=== PATIENT | male | born 1965 | race Caucasian/White ===

== ENCOUNTER 2021-01-31 20:07 | Inpatient (IN) | payer OTHER, SELFPAY ==
--- NOTE | 2021-01-31 20:41 | RAD REPORT ---
EXAM DESCRIPTION: CT - Ct Stroke Brain Wo Cont - 01/31/2021 8:33 pm CLINICAL HISTORY: Numbness and tingling, headache None. TECHNIQUE: Sequential axial images from the vertex to the skull base without IV contrast. All CT scans are performed using dose optimization technique as appropriate and may include automated exposure control or mA/KV adjustment according to patient size. FINDINGS: No evidence of mass or hemorrhage. No midline shift. No abnormal extra-axial collection. G ray-white differentiation is preserved without CT evidence of ischemia. Ventricles and sulci are norm al in size for patient's age. Basal cisterns patent. Mild chronic small vessel ischemic changes. Visualized portions of the mastoid air cells, paranasal sinuses, and orbits are unremarkable. IMPRESSION: No CT evidence of acute intracranial process. Discussed with Dr. Carlin by Dr. Mandujano at 2027 on 01/31/21.
--- NOTE | 2021-01-31 20:46 | RAD REPORT ---
EXAM DESCRIPTION: RAD - Chest Single View - 01/31/2021 8:41 pm CLINICAL HISTORY: stroke protocol COMPARISON: <Comparisons> FINDINGS: No evidence of edema or pneumonia. The heart size is within normal limits.No acute osseous abnormality. No significant pleural effusions or pneumothorax. IMPRESSION: No acute cardiopulmonary disease.
[2021-01-31 20:47] LABS: Basophils % 0.8 % (0-1.3); Hematocrit 44.4 % (39.6-49.0); MPV 7.4 fL (7.6-11.3); RBC Red Blood Cell Count 5.34 M/uL (4.33-5.43)
[2021-01-31 20:53] LABS: Protime INR 1.03
[2021-01-31] MEDS ORDERED: ASPIRIN 81 MG CHEWABLE TABLET ONE (20:57)
[2021-01-31] MEDS ORDERED: FOLIC ACID 5 MG/ML VIAL ONE (20:57)
[2021-01-31] MEDS ORDERED: NA CHLORIDE 0.9% 1,000 ML ONE (20:57)
--- NOTE | 2021-01-31 21:05 | EDPHYS ---
Physician Documentation [facility] Name: Malvin Saunders Age: 55 yrs Sex: Male : 1965 Arrival Date: 01/31/2021 Time: 20:20 Bed 24 Private MD: ED Physician Walt Carlin HPI: 01/31 20:54 This 55 yrs old Male presents to ER via Ambulatory with complaints of S/S of moni Possible Stroke. 20:54 The patient's problem is reported as a facial droop, on left. Onset: The moni symptoms/episode began/occurred 1 day(s) ago. Duration: The episode is continuous. Context: the episode(s) was witnessed, by family, . The symptoms are alleviated by nothing. The symptoms are aggravated by nothing. Associated signs and symptoms: The patient has no apparent associated signs or symptoms. Severity of symptoms: At their worst the symptoms were mild in the emergency department the symptoms are unchanged. Patient's baseline: Neuro: alert and fully oriented. The patient has not experienced similar symptoms in the past. Historical: - Allergies: 20:41 No Known Allergies; jm8 - PMHx: 20:41 Hypertensive disorder; Hypercholesterolemia; jm8 - PSHx: 20:41 None; jm8 - Immunization history:: Adult Immunizations up to date, Client reports having NOT received the Covid vaccine. - Social history:: Smoking status: Patient denies any tobacco usage or history of. - Family history:: not pertinent. ROS: 20:54 Constitutional: Negative for fever, chills, and weight loss, Eyes: Negative for injury, moni pain, redness, and discharge, ENT: Negative for injury, pain, and discharge, Neck: Negative for injury, pain, and swelling, Respiratory: Negative for shortness of breath, cough, wheezing, and pleuritic chest pain, Abdomen/GI: Negative for abdominal pain, nausea, vomiting, diarrhea, and constipation, Back: Negative for injury and pain, : Negative for injury, bleeding, discharge, and swelling, MS/Extremity: Negative for injury and deformity, Skin: Negative for injury, rash, and discoloration, Psych: Negative for depression, anxiety, suicide ideation, homicidal ideation, and hallucinations, Allergy/Immunology: Negative for hives, rash, and allergies. 20:54 Cardiovascular: Positive for chest pain, of the chest and left arm. 20:54 Neuro: Positive for left upper and lower facial droop. Exam: 20:54 Radiologist reports: neg moni 20:54 Constitutional: This is a well developed, well nourished patient who is awake, alert, and in no acute distress. Eyes: Pupils equal round and reactive to light, extra-ocular motions intact. Lids and lashes normal. Conjunctiva and sclera are non-icteric and not injected. Cornea within normal limits. Periorbital areas with no swelling, redness, or edema. ENT: Nares patent. No nasal discharge, no septal abnormalities noted. Tympanic membranes are normal and external auditory canals are clear. Oropharynx with no redness, swelling, or masses, exudates, or evidence of obstruction, uvula midline. Mucous membranes moist. Neck: Trachea midline, no thyromegaly or masses palpated, and no cervical lymphadenopathy. Supple, full range of motion without nuchal rigidity, or vertebral point tenderness. No Meningismus. Chest/axilla: Normal chest wall appearance and motion. Nontender with no deformity. No lesions are appreciated. Cardiovascular: Regular rate and rhythm with a normal S1 and S2. No gallops, murmurs, or rubs. Normal PMI, no JVD. No pulse deficits. Respiratory: Lungs have equal breath sounds bilaterally, clear to auscultation and percussion. No rales, rhonchi or wheezes noted. No increased work of breathing, no retractions or nasal flaring. Abdomen/GI: Soft, non-tender, with normal bowel sounds. No distension or tympany. No guarding or rebound. No evidence of tenderness throughout. Back: No spinal tenderness. No costovertebral tenderness. Full range of motion. Male : Normal genitalia with no discharge or lesions. Skin: Warm, dry with normal turgor. Normal color with no rashes, no lesions, and no evidence of cellulitis. MS/ Extremity: Pulses equal, no cyanosis. Neurovascular intact. Full, normal range of motion. Neuro: Awake and alert, GCS 15, oriented to person, place, time, and situation. Cranial nerves II-XII grossly intact. Motor strength 5/5 in all extremities. Sensory grossly intact. Cerebellar exam normal. Normal gait. Psych: Awake, alert, with orientation to person, place and time. Behavior, mood, and affect are within normal limits. 20:54 Head/face: Noted is left upper and lower facial droop. 21:05 ECG was reviewed by the Attending Physician. [facility] Vital Signs: 20:31 BP 172 / 104; Pulse 72; Resp 16; Temp 98.2; Pulse Ox 97% on R/A; Weight 113.4 kg; 8 Height 5 ft. 7 in. (170.18 cm); 21:33 BP 168 / 91; Pulse 64; Resp 16; Pulse Ox 97% on R/A; 8 22:09 BP 151 / 88; Pulse 67; Resp 16; Pulse Ox 97% on R/A; 8 20:31 Body Mass Index 39.16 (113.40 kg, 170.18 cm) 8 NIH Stroke Scale Scores: 20:38 NIHSS Score: 4 8 MDM: 20:[address] [facility] 20:57 Differential diagnosis: CVA, TIA. Data reviewed: vital signs, nurses notes, lab test [facility] result(s), EKG, radiologic studies, CT scan, plain films. Data interpreted: groundwater monitoring technician: rate is 72 beats/min, rhythm is regular, Pulse oximetry: on room air is 97 %. Test interpretation: by ED physician or midlevel provider: ECG, plain radiologic studies. Counseling: I had a detailed discussion with the patient and/or guardian regarding: the historical points, exam findings, and any diagnostic results supporting the discharge/admit diagnosis, lab results, radiology results, the need for further work-up and treatment in the hospital. 01/31 20:27 Order name: Basic Metabolic Panel; Complete Time: 23:45 mw2 01/31 20:27 Order name: CBC with Diff; Complete Time: 23:45 mw2 01/31 20:27 Order name: Protime (+inr); Complete Time: 23:45 mw2 01/31 20:27 Order name: Ptt, Activated; Complete Time: 23:45 mw2 01/31 20:32 Order name: COVID-19 : Document "Date of Symptom Onset" if Symptomatic. ph 01/31 20:49 Order name: Glucose, Ancillary Testing; Complete Time: 23:45 EDMS 01/31 22:05 Order name: SARS-COV-2 RT PCR; Complete Time: 23:45 EDMS 01/31 23:46 Order name: LFT's [facility] 01/31 23:46 Order name: Magnesium [facility] 01/31 23:46 Order name: NT PRO-BNP [facility] 01/31 23:46 Order name: Troponin (emerg Dept Use Only) [facility] 02/01 01:08 Order name: Liver (Hepatic) Function; Complete Time: 01:40 EDMS 02/01 01:08 Order name: Troponin (Emerg Dept Use Only); Complete Time: 01:40 EDMS 01/31 20:27 Order name: CT Stroke Brain w/o Contrast; Complete Time: 23:45 mw2 01/31 20:27 Order name: Stroke CXR 1 View; Complete Time: 23:45 mw2 02/01 01:08 Order name: NT PRO-BNP; Complete Time: 01:40 EDMS 02/01 01:08 Order name: Magnesium; Complete Time: 01:40 EDMS 02/01 06:49 Order name: CBC with Automated Diff EDGA 02/01 06:50 Order name: Comprehensive Metabolic Panel EDGA 02/01 06:50 Order name: Phosphorus EDMS 02/01 06:50 Order name: Lipid Profile EDMS 02/01 06:50 Order name: T4 Free EDMS 02/01 06:50 Order name: Magnesium EDMS 02/01 06:50 Order name: Thyroid Stimulating Hormone EDMS 02/01 08:43 Order name: MRI EDGA 02/01 08:45 Order name: MRI EDMS 02/01 08:48 Order name: MRI EDMS 02/01 08:54 Order name: Manual Differential EDGA 02/01 09:55 Order name: Troponin I EDGA 01/31 20:27 Order name: EKG; Complete Time: 20:27 [facility] 01/31 20:27 Order name: Accucheck; Complete Time: 20:47 2 01/31 20:27 Order name: Cardiac monitoring; Complete Time: 20:47 2 01/31 20:27 Order name: EKG - Nurse/Tech; Complete Time: 20:47 01/31 20:27 Order name: IV Saline Lock; Complete Time: 20:47 01/31 20:27 Order name: Labs collected and sent; Complete Time: 20:47 2 01/31 20:27 Order name: NPO; Complete Time: 20:47 2 01/31 20:27 Order name: O2 Per Protocol; Complete Time: 20:47 mw2 01/31 20:27 Order name: O2 Sat Monitoring; Complete Time: 20:47 mw2 01/31 20:27 Order name: Stroke Swallow Screen; Complete Time: :47 mw01/31 21:55 Order name: CONS Physician Consult EDMS EC:05 Rate is 73 beats/min. Rhythm is regular. QRS [place] is Normal. VT interval is normal. QRS moni interval is normal. QT interval is normal. No Q waves. T waves are Normal. No ST changes noted. Clinical impression: NSR w/ Non-specific ST/T Changes and No evidence of ischemia. Interpreted by me. Reviewed by me. Administered Medications: 20:39 Drug: NS 0.9% 1000 ml Route: IV; Rate: 1 bolus; Site: left antecubital; ph 20:39 Drug: foLIC Acid 1 mg Route: IVPB; Site: left antecubital; ph 21:07 Drug: Aspirin Chewable Tablet 324 mg Route: PO; ak2 21:16 Follow up: Response: No adverse reaction jm8 21:16 Drug: predniSONE 60 mg Route: PO; jm8 21:16 Drug: Valtrex (valACYclovir) 1000 mg Route: PO; jm8 21:16 Drug: Lovenox (enoxaparin) 1 mg/kg Route: Sub-Q; Site: abdomen; jm8 21:43 Not Given (Hemodynamic Parameters): Lopressor (metoprolol TARTRATE) 50 mg PO once jm8 Point of Care Testing: Blood Glucose: 20:42 Blood Glucose: 108 mg/dL; jm8 Ranges: Critical Glucose Levels:Adult <50 mg/dl or >400 mg/dl <40 mg/dl or >180 mg/dl Disposition Summary: 01/31/21 21:04 Hospitalization Ordered Hospitalization Status: Observation moni Provider: Yelitza Diaz moni Condition: Stable moni Problem: new moni Symptoms: have improved moni Bed/Room Type: Standard moni Location: [facility] ER HOLD(01/31/21 22:07) cg Room Assignment: ERHOLD-(01/31/21 22:07) cg Diagnosis - Ibarra's palsy moni - Essential (primary) hypertension moni - Chest pain, unspecified moni - Obesity, unspecified moni Forms: - Medication Reconciliation Form moni - SBAR form moni NIH Stroke Scale - NIH Stroke Score Date: 01/31/2021 Time: 20:38 Total Score = 4 1a. Level of Consciousness (LOC) - 0(Alert) 1b. Level of Consciousness (LOC) (Month \\T\\ Age) - 0(Both) 1c. LOC Commands (Open \\T\\ Closes Eyes/Electromechanical Assembly Technician) - 0(Both) 2. Best Gaze (Lateral Gaze Paresis) - 1(Partial gaze palsy) 3. Visual Field Loss - 0(No visual loss) 4. Facial Palsy - 3(Complete paralysis) 5a. Left Arm: Motor (10-second hold) - 0(No drift) 5b. Right Arm: Motor (10-second hold) - 0(No drift) 6a. Left Leg: Motor (5-second hold - always test supine) - 0(No drift) 6b. Right Leg: Motor (5-second hold - always test supine) - 0(No drift) 7. Limb Ataxia (finger/nose \\T\\ heel/nuñez - test with eyes open) - 0(Absent) 8. Sensory Loss (pinprick arms/legs/face) - 0(Normal) 9. Best Language: Aphasia (description/naming/reading) - 0(No aphasia) 10. Dysarthria (speech clarity - read or repeat words) - 0(Normal) 11. Extinction and Inattention (visual/tactile/auditory/spatial/personal) - 0(No abnormality) Initials: jewels Signatures: Dispatcher [employer] EDMS Walt Carlin MD MD cha Hall, Patricia, RN RN Ana Wood, RN RN Ashley Agrawal 2 Red Trinh RN LEIDY [facility] [place] n[place]2 Corrections: (The following items were deleted from the chart) 21:03 20:32 CORONAVIRUS ordered. EDGA EDGA 22:07 21:04 Telemetry/MedSurg (observation) [facility] 22: 21:04 [facility]
--- NOTE | 2021-01-31 21:05 | ER ---
Nurse's Notes [facility] Name: Malvin Saunders Age: 55 yrs Sex: Male : 1965 Arrival Date: 01/31/2021 Time: 20:20 Bed 24 Private MD: Diagnosis: Ibarra's palsy;Essential (primary) hypertension;Chest pain, unspecified;Obesity, unspecified Presentation: 01/31 20:31 Chief complaint: Spouse and/or significant other states: she noticed that patient's jm8 left eye was sluggish to close yesterday around 4 pm. Today around 4 pm she noticed that his eye wasn't closing at all and the left side of his face was limp and was twitching. Coronavirus screen: Client denies travel out of the [place] in the last 14 days. Ebola Screen: Patient negative for fever greater than or equal to 101.5 degrees Fahrenheit, and additional compatible Ebola Virus Disease symptoms Patient denies exposure to infectious person. Patient denies travel to an Ebola-affected area in the 21 days before illness onset. An acute neurological deficit is present. The charge nurse has been notified. The patient has been moved to a treatment area. Pre-hospital glucose is not applicable to this patient. Initial Sepsis Screen: Does the patient meet any 2 criteria? No. Patient's initial sepsis screen is negative. Initial Sepsis Screen: Does the patient have a suspected source of infection? No. Patient's initial sepsis screen is negative. Risk Assessment: Do you want to hurt yourself or someone else? Patient reports no desire to harm self or others. Onset of symptoms was January 30, 2021 at 16:00. 20:31 Method Of Arrival: Ambulatory [facility] 20:31 Acuity: NICOLAS 2 [facility] Triage Assessment: 21:33 The onset of the patients symptoms was January 30, 2021 at 16:00. 8 Stroke Activation: Symptom onset > 6 hours Physician: Stroke Attending; Name: ; Notified At: ; Arrived At: Physician: Chief Stroke Resident; Name: ; Notified At: ; Arrived At: Physician: Stroke Resident; Name: ; Notified At: ; Arrived At: Physician: ED Attending; Name: ; Notified At: ; Arrived At: Physician: ED Resident; Name: ; Notified At: ; Arrived At: Historical: - Allergies: 20:41 No Known Allergies; jm8 - PMHx: 20:41 Hypertensive disorder; Hypercholesterolemia; jm8 - PSHx: 20:41 None; jm8 - Immunization history:: Adult Immunizations up to date, Client reports having NOT received the Covid vaccine. - Social history:: Smoking status: Patient denies any tobacco usage or history of. - Family history:: not pertinent. Screenin:42 Abuse screen: Denies threats or abuse. Denies injuries from another. Nutritional jm8 screening: No deficits noted. Tuberculosis screening: No symptoms or risk factors identified. Fall Risk None identified. Assessment: 20:38 VAN Scoring: Arm Drift: Patients demonstrates NO arm weakness. Patient is VAN Negative. jm8 T-PA (Activase) Screening: Contraindications: Patient reports onset of signs and symptoms of stroke greater than 6 hours ago: Yes. General: Appears in no apparent distress. comfortable, Behavior is calm, cooperative, appropriate for age. Pain: Complains of pain in chest and left arm Pain currently is 2 out of 10 on a pain scale. Quality of pain is described as aching, crampy. Neuro: Level of Consciousness is awake, alert, obeys commands, Oriented to person, place, time, Reports left side facial droop and paralysis. Unable to close left eye. Cardiovascular: No deficits noted. Respiratory: No deficits noted. GI: No deficits noted. No signs and/or symptoms were reported involving the gastrointestinal system. : No deficits noted. No signs and/or symptoms were reported regarding the genitourinary system. EENT: No deficits noted. No signs and/or symptoms were reported regarding the EENT system. Derm: No deficits noted. No signs and/or symptoms reported regarding the dermatologic system. Musculoskeletal: No deficits noted. No signs and/or symptoms reported regarding the musculoskeletal system. 21:33 The patient has not been NPO before screening. The patient is alert, and able to follow jm8 commands. The patient does not exhibit slurred or garbled speech. The patient is not exhibiting difficulty speaking. The patient does not exhibit difficulty understanding words. The patient is able to swallow own secretions with no drooling or need for suction. Patient tolerated one teaspoon of water. No drooling, immediate coughing, gurgling, or clearing of the throat was noted. The patient tolerated 90mL of water. No drooling, immediate coughing, gurgling, or clearing of the throat was noted. The patient passed the bedside swallow screening. Oral medications may be given as ordered. Contact Physician for further diet orders. Provider notified of bedside swallow screening results: Walt Carlin MD. Vital Signs: 20:31 BP 172 / 104; Pulse 72; Resp 16; Temp 98.2; Pulse Ox 97% on R/A; Weight 113.4 kg; 8 Height 5 ft. 7 in. (170.18 cm); 21:33 BP 168 / 91; Pulse 64; Resp 16; Pulse Ox 97% on R/A; jm8 22:09 BP 151 / 88; Pulse 67; Resp 16; Pulse Ox 97% on R/A; jm8 20:31 Body Mass Index 39.16 (113.40 kg, 170.18 cm) jm8 NIH Stroke Scale Scores: 20:38 NIHSS Score: 4 [facility] ED Course: 20:20 Patient arrived in ED. wm 20:27 Walt Carlin MD is Attending Physician. moni 20:33 CT Stroke Brain w/o Contrast In Process Unspecified. EDMS 20:38 Triage completed. jm8 20:42 Stroke CXR 1 View In Process Unspecified. EDMS 20:42 Arm band placed on right wrist. jm8 20:43 Patient has correct armband on for positive identification. Bed in low position. Call [facility] light in reach. Side rails up X2. Adult w/ patient. 20:43 Inserted saline lock: 18 gauge in left antecubital area, using aseptic technique. 8 20:59 Yelitza Diaz MD is Hospitalizing Provider. moni Administered Medications: 20:39 Drug: NS 0.9% 1000 ml Route: IV; Rate: 1 bolus; Site: left antecubital; ph 20:39 Drug: foLIC Acid 1 mg Route: IVPB; Site: left antecubital; ph 21:07 Drug: Aspirin Chewable Tablet 324 mg Route: PO; ak2 21:16 Follow up: Response: No adverse reaction jm8 21:16 Drug: predniSONE 60 mg Route: PO; jm8 21:16 Drug: Valtrex (valACYclovir) 1000 mg Route: PO; jm8 21:16 Drug: Lovenox (enoxaparin) 1 mg/kg Route: Sub-Q; Site: abdomen; jm8 21:43 Not Given (Hemodynamic Parameters): Lopressor (metoprolol TARTRATE) 50 mg PO once [place] Point of Care Testing: Blood Glucose: 20:42 Blood Glucose: 108 mg/dL; [facility] Ranges: Outcome: 21:04 Decision to Hospitalize by Provider. moni 02/01 15:24 Patient left the ED. NIH Stroke Scale - NIH Stroke Score Date: 01/31/2021 Time: 20:38 Total Score = 4 1a. Level of Consciousness (LOC) - 0(Alert) 1b. Level of Consciousness (LOC) (Month \T\ Age) - 0(Both) 1c. LOC Commands (Open \T\ Closes Eyes/Information Strategist) - 0(Both) 2. Best Gaze (Lateral Gaze Paresis) - 1(Partial gaze palsy) 3. Visual Field Loss - 0(No visual loss) 4. Facial Palsy - 3(Complete paralysis) 5a. Left Arm: Motor (10-second hold) - 0(No drift) 5b. Right Arm: Motor (10-second hold) - 0(No drift) 6a. Left Leg: Motor (5-second hold - always test supine) - 0(No drift) 6b. Right Leg: Motor (5-second hold - always test supine) - 0(No drift) 7. Limb Ataxia (finger/nose \T\ heel/nuñez - test with eyes open) - 0(Absent) 8. Sensory Loss (pinprick arms/legs/face) - 0(Normal) 9. Best Language: Aphasia (description/naming/reading) - 0(No aphasia) 10. Dysarthria (speech clarity - read or repeat words) - 0(Normal) 11. Extinction and Inattention (visual/tactile/auditory/spatial/personal) - 0(No abnormality) Initials: Yraely Signatures: Dispatcher [employer] EDWalt Reina MD MD cha Williams, Irene, RN LEIDY Ira Mendez RN RN Red Trinh, RN LEIDY [facility] [place] Wendy
[2021-01-31 21:06] LABS: Potassium 3.5 mmol/L (3.5-5.1)
[2021-01-31] MEDS ORDERED: predniSONE 20 MG TAB ONE (21:27)
[2021-01-31] MEDS ORDERED: METOPROLOL TAR 50 MG TAB ONE (21:28)
[2021-01-31] MEDS ORDERED: ENOXAPARIN 100 MG/ML SYR SQ ONE (21:28)
[2021-01-31] MEDS ORDERED: VALACYCLOVIR 500 MG TAB ONE (21:30)
[2021-01-31 23:20] VITALS: BMI 38.7
[2021-01-31] MEDS ORDERED: ONDANSETRON 4 MG/2 ML VIAL IV PRN (23:20)
[2021-01-31] MEDS ORDERED: NITROGLYCERIN 0.4 MG/TAB SL PRN (23:20)
[2021-01-31] MEDS ORDERED: ACETAMINOPHEN 500 MG TAB PO PRN (23:20)
[2021-01-31] MEDS ORDERED: MORPHINE 2 MG/ML SYR IV PRN (23:20)
[2021-02-01 01:08] LABS: ALT/SGPT 27 U/L (12-78); AST/SGOT 17 U/L (15-37); Alkaline Phosphatase 101 U/L (45-117); Bilirubin Direct < 0.1 mg/dL (0-0.2); Bilirubin Total 0.3 mg/dL (0.2-1.0); Magnesium 2.1 mg/dL (1.8-2.4); NT PRO-BNP 46 pg/mL (<125); Protein, Total 6.5 g/dL (6.4-8.2); Troponin (Emerg Dept Use Only) < 0.02 ng/mL (0.0-0.045)
[2021-02-01 04:30] VITALS: TEMP 97.6
--- NOTE | 2021-02-01 04:53 | P.HP ---
Patient History Date of Service: 02/01/21 Reason for admission: chest pain, facial droop History of Present Illness: Mr. Saunders is a 55 yo M with HTN and HLD here today with 5/10 left sided stinging sharp chest pain and left arm numbness that began yesterday. He says it has been intermittent and occurs at rest. Pain lasts for a few minutes. He says he has not been taking his BP medications since he was laid off and lost insurance. Has not seen a metal weigher in years. This morning, his noticed the left sided of his face drooping, symptoms continue at bedside. He reports blurry vision, lightheadedness, numbness, and speech changes. Denies difficulty swallowing, vertigo, gait changes and double vision. Given ASA, full dose lovenox, metoprolol, folic acid, prednisone, and valtrex in the ED. Allergies No Known Allergies Allergy (Verified 01/31/21 23:19) - Past Medical/Surgical History Has patient received pneumonia vaccine in the past: No Diabetic: No -: HTN -: HLD Past Surgical History: Patient denies surgical history - Family History Mother -: Heart disease, Cancer Father -: Heart disease, Diabetes, Stroke - Social History Smoking Status: Never smoker Alcohol use: No CD- Drugs: No Caffeine use: Yes Place of Residence: Home Review of Systems 10-point ROS is otherwise unremarkable Eyes: Vision Change Cardiovascular: Chest Pain, Light Headedness Neurological: Weakness, Numbness, Change in Speech Physical Examination - Vital Signs Temperature: 97.6 F Blood Pressure: 141/84 Pulse: 56 Respirations: 16 Pulse Ox (%): 92 - Physical Exam General: Alert, In no apparent distress HEENT: Atraumatic, PERRLA, Mucous membr. moist/pink, Other (difficulty blinking with left eye), EOMI, Sclerae nonicteric Neck: Supple, 2+ carotid pulse no bruit, No LAD, Without JVD or thyroid abnormality Respiratory: Clear to auscultation bilaterally, Normal air movement Cardiovascular: Regular rate/rhythm, Normal S1 S2 Gastrointestinal: Normal bowel sounds, No tenderness Musculoskeletal: No tenderness Integumentary: No rashes Neurological: Normal gait, Normal speech, Normal strength at 5/5 x4 extr, Normal tone, Normal affect, Other (can raise eyebrows, difficulty with smile on left side ), Abnormal sensation Lymphatics: No axilla or inguinal lymphadenopathy - Studies Laboratory Data (last 24 hrs) 01/31/21 20:20: PT 11.9, INR 1.03, APTT 33.4 01/31/21 20:20: WBC 12.80 H, Hgb 14.9, Hct 44.4, Plt Count 357 01/31/21 20:20: Sodium 143, Potassium 3.5, BUN 18, Creatinine 1.32 H, Glucose 111 H Assessment and Plan - Plan Assessment chest pain L sided facial droop HTN HLD Assessment chest pain - cardiology consulted, trend troponins and EKG, PRN morphine and NTG, daily ASA, metoprolol, statin, DVT ppx , thyroid panel and lipid panel pending L sided facial droop - neurology consulted, MRI brain in the AM, NPO, speech consulted HTN - stable, continue to monitor HLD - stable, continue to monitor DVT ppx Discharge Plan: Home Plan to discharge in: 24 Hours - Advance Directives Does patient have a Living Will: No Does patient have a Durable POA for Healthcare: No - Code Status/Comfort Care Code Status Assessed: Yes (full code ) Critical Care: No Time Spent Managing Pts Care (In Minutes): 70
[2021-02-01 05:55] LABS: Absolute Lymphocytes (CBC) 0.8 K/uL (0.7-4.9); Basophils % 0.6 % (0-1.3); Hematocrit 45.3 % (39.6-49.0); Lymphocytes % 8.1 % (15.3-44.8); MPV 7.7 fL (7.6-11.3); RBC Red Blood Cell Count 5.39 M/uL (4.33-5.43)
[2021-02-01] MEDS ORDERED: METOPROLOL TAR 25 MG TAB PO SCH (06:00)
[2021-02-01 06:18] LABS: Albumin 3.4 g/dL (3.4-5.0); Bilirubin Total 0.2 mg/dL (0.2-1.0); Phosphorus 1.9 mg/dL (2.5-4.9); Protein, Total 7.3 g/dL (6.4-8.2); Thyroid Stimulating Hormone 1.15 uIU/mL (0.360-3.740)
[2021-02-01 06:28] LABS: Magnesium 2.3 mg/dL (1.8-2.4); Potassium 4.1 mmol/L (3.5-5.1)
[2021-02-01 06:54] VITALS: O2SAT 93
[2021-02-01] MEDS ORDERED: METOPROLOL TAR 25 MG TAB ONE (07:00)
--- NOTE | 2021-02-01 08:42 | RAD REPORT ---
EXAM DESCRIPTION: MRI - Brain W/Wo Cont - 02/01/2021 8:07 am CLINICAL HISTORY: FACIAL DROOP, diplopia, slurred speech, left arm numbness and tingling COMPARISON: MRA Head Wo Cont dated 02/01/2021; Ct Stroke Brain Wo Cont dated 01/31/2021; MRA Neck W/Wo Cont dated 02/01/2021 TECHNIQUE: Sagittal and axial T1-weighted images were obtained. Axial PD/heavily T2-weighted and T2- FLAIR images were obtained along with axial DWI/ADC mapping sequences. Coronal heavily T2 weighted s equence obtained. Axial and coronal post-contrast T1-weighted images were also obtained. A 20 ml Mul tihance contrast following utilized. FINDINGS: No intracranial hemorrhage, mass or edema. There is no shift of midline structures. Gao m atter- white matter differentiation is preserved. Diffusion-weighted imaging shows no infarction prado ges of the cerebral or cerebellar hemispheres. No thalamus or basal ganglia infarction. There is a 7 millimeter sized area of slightly increased signal intensity on diffusion-weighted imaging in the ant erior midline midbrain. No corresponding signal abnormality on ADC mapping. No proton density/ T2 cor relate identified. There are minimal areas of T2/IR signal abnormality in the cerebral white matter. No atrophy changes identified. Ventricles are normal. Signal voids are seen as a normal finding in the major intracrania l vessels. Post-contrast images show normal enhancement. No dural thickening. Mastoid air cells and paranasal sinuses are clear. IMPRESSION: No intracranial hemorrhage, mass, edema or acute intracranial finding identifiable. Patient has mild chronic ischemic changes scattered in the cerebral white matter. Focal diffusion signal abnormality in the anterior midline of the midbrain does not have any correspo nding signal abnormality on any of the other sequences. This could be an area of old ischemic insult. Mass lesion is not suspected. The patient's symptoms do not appear to correspond to an ischemic insu lt in the anterior midline mid of the midbrain.
--- NOTE | 2021-02-01 08:45 | RAD REPORT ---
EXAM DESCRIPTION: MRI - MRA Head Wo Cont - 02/01/2021 8:07 am CLINICAL HISTORY: facial droop, double vision, slurred speech, left arm numbness and tingling, chest pain no hx of stroke or seizure COMPARISON: MRI brain same date, CT head January 31 TECHNIQUE: Axial and coronal 3D [id number] image acquisition was performed. 3D rotational images were generated with source and reconstruction images reviewed. Horizontal and vertical axis rotation al views generated using MIP protocol. FINDINGS: No aneurysm or vascular malformation. No vasculitis or other diffuse vascular process iden tifiable. The anterior, middle and posterior cerebral arteries show no significant degree of atherosc lerotic change. From skullbase determination the internal carotid arteries also without atherosclerot ic change, dissection or other acute process. Basilar artery is tortuous without focal abnormality. IMPRESSION: MRA head examination shows no significant or suspicious finding.
--- NOTE | 2021-02-01 08:47 | RAD REPORT ---
EXAM DESCRIPTION: MRI - MRA Neck W/Wo Cont - 02/01/2021 8:06 am CLINICAL HISTORY: facial droop, double vision, slurred speech, left arm numbness and tingling, chest pain no hx of stroke or seizure COMPARISON: MRI brain same date, MRA head same date TECHNIQUE: MR angiography of the cervical vasculature performed. Coronal imaging plane acquisition u tilized. A 20 MultiHance contrast volume was utilized. Coronal reformatted images were generated and reviewed. Vertical axis 3D rotational projections obtained using maximum intensity projection protoco l. FINDINGS: Aortic arch is 3 vessel configuration. There is some motion degradation that limits exam. However, no great vessel origins stenosis identifiable. The bilateral common carotid and internal car otid arteries show no dissection, vasculitis or measurable atherosclerotic change. Right vertebral artery is dominant and without focal abnormality. No origin stenosis. Left vertebral artery is much smaller in size has a normal variant. Origin is not well visualized. The left vertebra l artery appears to terminate at the posteroinferior cerebellar artery as a normal variant. IMPRESSION: MRA neck examination shows no significant or suspicious finding.
[2021-02-01 08:53] LABS: Blood Morphology Comment NOT SEEN (NOT SEEN); Platelet Estimate ADEQ
[2021-02-01] MEDS ORDERED: ASPIRIN EC 81 MG TAB PO SCH (09:00)
[2021-02-01] MEDS ORDERED: POTASS/SODIUM PHOSPHATE 1 PKT POWD.PACK PO SCH (09:00)
[2021-02-01] MEDS ORDERED: ENOXAPARIN 40 MG/0.4 ML SQ SCH (09:00)
[2021-02-01] MEDS ORDERED: ENOXAPARIN 40 MG/0.4 ML SQ ONE (10:12)
--- NOTE | 2021-02-01 12:40 | EKG ---
Test Date: 2021-01-31 Test Time: 20:26:34 Advertising Production Manager: MEASUREMENT RESULTS: Intervals: Rate: 73 TX: 154 QRSD: 100 QT: 374 QTc: 412 Tichnor: P: 59 TX: 154 QRS: -41 T: 262 INTERPRETIVE STATEMENTS: Normal sinus rhythm Left axis deviation Pulmonary disease pattern Incomplete right bundle branch block T wave abnormality, consider lateral ischemia Abnormal ECG Compared to ECG 11/13/2005 09:53:30 Left-axis deviation now present Incomplete right bundle-branch block now present T-wave abnormality now present Possible ischemia now present Electronically Signed On 02-01-21 12:37:33 CDT by Sulaiman Piedra
[2021-02-01 13:01] VITALS: BP 138/93
--- NOTE | 2021-02-01 14:04 | ECHO ---
HEIGHT: 5 ft 7 in WEIGHT: 247 lb 1.6 oz DATE OF STUDY: 02/01/[address]: Sulaiman Piedra MD 2-DIMENSIONAL: YES M.MODE: YES DOPPLER: YES COLOR FLOW: YES TDS: NO PORTABLE: NO DEFINITY: NO BUBBLE STUDY: NO DIAGNOSIS: CHEST PAIN CARDIAC HISTORY: CATHERIZATION: SURGERY: PROSTHETIC VALVE: PACEMAKER: MEASUREMENTS (cm) DIASTOLIC (NORMALS) SYSTOLIC (NORMALS) IVSd 1.3 (0.6-1.2) LA Diam 3.3 (1.9-4.0) LVEF 67% LVIDd 3.8 (3.5-5.7) LVIDs 2.4 (2.0-3.5) %FS 37% LVPWd 1.1 (0.6-1.2) Ao Diam 2.8 (2.0-3.7) 2 DIMENSIONAL ASSESSMENT: RIGHT ATRIUM: NORMAL LEFT ATRIUM: NORMAL RIGHT VENTRICLE: NORMAL LEFT VENTRICLE: NORMAL TRICUSPID VALVE: NORMAL MITRAL VALVE: NORMAL PULMONIC VALVE: NORMAL AORTIC VALVE: NORMAL PERICARDIAL EFFUSION: NONE AORTIC ROOT: NORMAL LEFT VENTRICULAR WALL MOTION: NORMAL. DOPPLER/COLOR FLOW: NORMAL. COMMENTS: NORMAL 2D ECHO WITH DOPPLER. NO THROMBUS. NO VEGETATION. TECHNOLOGIST: SANJEEV JARRELL
--- NOTE | 2021-02-01 14:21 | P.DS ---
Admission Date: 02/01/21 Discharge Date: 02/01/21 Disposition: ROUTINE DISCHARGE Discharge Condition: FAIR Reason for Admission: chest pain, facial droop - Problems (1) Ibarra's palsy Status: Acute (2) Chest pain Status: Acute (3) Hypertension Status: Acute (4) Hyperlipidemia Status: Acute Brief History of Present Illness: 55 year old man with HTN and HLD presented to the emergency department with a complaint of left arm numbness and left facial droop. Patient was also complaining of intermittent chest pain. He has been noncompliant with physician follow up due to loss of insurance. He also reported blurry vision, lightheadedness, numbness, and speech changes as well as inability to close the left eye. Patient was given ASA, full dose lovenox, metoprolol, folic acid, prednisone, and valtrex in the ED and hospitalized for further management. Hospital Course: Patient admitted to the medical floor and started on aspirin and Lipitor for possible CVA. MRI of the brain was negative for acute CVA. MRA head and neck were unremarkable. Patient neurologist symptoms improved during the hospital stay. He is now able to shut both eyes. No speech problem, no swallow problem, no limb weakness. He does have residual left-sided facial droop. He was seen by neurology-Dr. Treviño and diagnosed with Ibarra's palsy. Troponin trended negative, echocardiogram unremarkable. Patient seen by cardiology Dr. Piedra will follow up with him as an outpatient for further CAD work up. Dr. Piedra recommended aspirin and Plavix and statin. Patient started on oral prednisone and Valtrex for Ibarra palsy. Vital Signs/Physical Exam: Temp Pulse Resp BP Pulse Ox 97.6 F 65 18 138/93 H 92 02/01/21 12:00 02/01/21 12:00 02/01/21 12:00 02/01/21 12:02/01/21 12:00 General: Alert, In no apparent distress, Oriented x3 HEENT: Mucous membr. moist/pink Neck: JVD not distended Respiratory: Clear to auscultation bilaterally, Normal air movement, Crackles/rales Cardiovascular: No edema, Regular rate/rhythm, Normal S1 S2 Capillary refill: <2 Seconds Gastrointestinal: Normal bowel sounds, Soft and benign, Non-distended, No tenderness Musculoskeletal: No clubbing, No swelling Integumentary: No rashes, No erythema Neurological: Normal gait, Normal speech, Normal strength at 5/5 x4 extr, Other (Mild left facial droop.) Laboratory Data at Discharge: WBC 10.00 K/uL (4.3-10.9) D 02/01/21 05:31 Hgb 15.1 g/dL (13.6-17.9) 02/01/21 05:31 Hct 45.3 % (39.6-49.0) 02/01/21 05:31 Plt Count 345 K/uL (152-406) 02/01/21 05:31 PT 11.9 SECONDS (9.5-12.5) 01/31/21 20:20 INR 1.03 01/31/21 20:20 APTT 33.4 SECONDS (24.3-36.9) 01/31/21 20:20 Sodium 140 mmol/L (136-145) 02/01/21 05:31 Potassium 4.1 mmol/L (3.5-5.1) 02/01/21 05:31 BUN 17 mg/dL (7-18) 02/01/21 05:31 Creatinine 1.19 mg/dL (0.55-1.3) 02/01/21 05:31 Glucose 132 mg/dL (74-106) H 02/01/21 05:31 Phosphorus 1.9 mg/dL (2.5-4.9) L 02/01/21 05:31 Magnesium 2.3 mg/dL (1.8-2.4) 02/01/21 05:31 Total Bilirubin 0.2 mg/dL (0.2-1.0) 02/01/21 05:31 AST 17 U/L (15-37) 02/01/21 05:31 ALT 27 U/L (12-78) 02/01/21 05:31 Alkaline Phosphatase 117 U/L (45-117) 02/01/21 05:31 Troponin I < 0.02 ng/mL (0.0-0.045) 02/01/21 09:22 Triglycerides 265 mg/dL (<150) H 02/01/21 05:31 Cholesterol 239 mg/dL (<200) H 02/01/21 05:31 HDL Cholesterol 28 mg/dL (40-60) L 02/01/21 05:31 Cholesterol/HDL Ratio 8.54 02/01/21 05:31 Home Medications: Aspirin [Aspirin EC 81 MG] 81 mg PO DAILY #30 tablet. 02/01/21 Atorvastatin Calcium [Lipitor] 40 mg PO BEDTIME #30 tab 02/01/21 Clopidogrel Bisulfate [Plavix] 75 mg PO DAILY #30 tablet 02/01/21 Metoprolol Tartrate [Lopressor*] 25 mg PO BID 6AM 6PM #60 tab 02/01/21 Valacyclovir HCl [Valtrex] 1,000 mg PO TID #42 tablet 02/01/21 predniSONE [Deltasone] 60 mg PO DAILY #7 tab 02/01/21 New Medications: Aspirin [Aspirin EC 81 MG] 81 mg PO DAILY #30 tablet. Atorvastatin Calcium [Lipitor] 40 mg PO BEDTIME #30 tab Metoprolol Tartrate [Lopressor*] 25 mg PO BID 6AM 6PM #60 tab Clopidogrel Bisulfate [Plavix] 75 mg PO DAILY #30 tablet predniSONE [Deltasone] 60 mg PO DAILY #7 tab Valacyclovir HCl [Valtrex] 1,000 mg PO TID #42 tablet Diet: AHA Activity: Ad faustina Followup: Sulaiman iPedra MD [ACTIVE - CAN ADMIT] - 1-2 Weeks Barrett Treviño MD [ASSOCIATE-ACTIVE - CAN ADMIT] - NONE,NONE [Primary Care Provider] - Time spent managing pt's care (in minutes): 36
[2021-02-01] MEDS ORDERED: ATORVASTATIN 40 MG TAB PO SCH (21:00)
--- NOTE | 2021-02-01 22:38 | CON ---
Reason For Consultation: Consultation called because of left facial drooping. History Of Present Illness: Mr. Saunders is a 55-year-old right-handed patient with hypertensi on, dyslipidemia, who comes to [facility] with left facial weakness and left arm pain. It s hould be noted that in the emergency room, his history shows left arm numbness that is not what the p osmin mentioned to me as I interviewed him. His symptoms became progressive. His noted that h is left eye was not closing as the right side would. He also noted some abnormal taste and some unus ual sounds in the left ear. He had difficulty of closing the eyes, had blurred, vision and could not speak clearly because of difficulty of closing the mouth properly. He came to [facility] a nd had a head CT scan, which showed no acute ischemic or hemorrhagic change. Subsequent brain MRI ru led out the presence of a stroke. He had an unremarkable brain MRI except for mild chronic small-ves breonna ischemic disease. His magnetic resonance angiogram of the head and neck showed no significant st enosis. Echocardiogram showed ejection fraction of 67% percent, was a normal study, and electrocardi ograms showed normal sinus rhythm with left axis deviation, incomplete right bundle branch block, pul monary disease pattern. His laboratory studies showed slightly elevated white blood cell count initi ally of 12.8, then normalized to 10.0. His hemoglobin and hematocrit are unremarkable. Coagulation panel unremarkable. Chemistries consistent with mild dehydration. Chloride 109, GFR slightly low at 63, and glucose 132, otherwise liver function studies were normal. Total cholesterol elevated at 23 9, LDL cholesterol elevated at 158, HDL cholesterol low at 28. COVID-19 test was negative. The patient was treated with aspirin, statin, and folic acid along with DVT prophylaxis medication. His and the patient noted that his left facial drooping has improved moderately after he receive d Valtrex 1000 mg and hydration. Physical Examination: Vital Signs: Blood pressure 138/93, pulse 65, respiratory rate 18, temperature 97.6, oxygen saturati on 98% room air. Weight 247 pounds, height 5 feet 7 inches, BMI 38.7. General: Mr. Saunders is resting in bed, in no acute distress. HEENT: He is normocephalic, atraumatic. Sclerae anicteric. Oropharynx is pink and moist. Neck: Supple. Chest: Clear. Heart: Regular. Extremities: Show no clubbing, cyanosis, or edema. Neurological: He has mild decrease of the left nasolabial fold. He has decreased blinking on the le ft. He also has some difficulty with taste in the mouth. He states that his food tastes normally an d hearing is actually symmetric on both sides. Otherwise, cranial nerves intact. Motor examination, no weakness, 5/5 strength proximally and distally in the upper and lower extremities. Coordination intact in upper and lower extremities. Sensation intact in upper and lower extremities. Reflexes sy mmetric, 2+ in upper and lower extremities. Gait intact. Assessment: Mr. 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 He does have multiple stroke risk factors, however, including hypertension, dyslipidemia, and obesity. Plan: 1.He should continue an aspirin, statin, and folic acid. He should have modulation of his blood pre ssure medications to decrease systolic blood pressure to 120 to 130 range. 2.Continue with the antiviral medication and may get a short course of steroids and he may follow up with Dr. Treviño in clinic in 1 month after discharge. MARILYN/GOKUL Voice ID: [id number] Report ID: [id number]
--- NOTE | 2021-02-02 13:00 | CON ---
Reason For Consultation: The patient admitted to Dr. Wallace with atypical chest pain and TIA. History Of Present Illness: He is a 55-year-old man. He has a history of dyslipidemia and hypertens ion. He came in hypertensive, came in with an episode of what appeared TIA with facial drooping that has resolved by now. He has had a negative CT of his head, negative troponin, negative chest x-ray, negative MRI, and a normal echocardiogram. He is asymptomatic now. He did complain of some left-si ded chest pain that has lasted for about 2 days without any radiation. It is nonexertional. Denied any PND, orthopnea, pedal edema, palpitation, or syncope. Past Medical History: As stated above. Allergies: NONE. Review of Systems: Negative. Social History: Negative. Family History: Noncontributory. Physical Examination: Vital Signs: His blood pressure is 156/98, sinus rhythm. HEENT: Negative. Neck: Supple with no bruit. Chest: Clear to auscultation and percussion. Cardiac: Revealed a regular rhythm and rate with S4 gallops. No murmurs or rubs. Abdomen: Benign. Extremities: Revealed no clubbing, cyanosis, or edema. Diagnostic Data: Showed severe dyslipidemia, otherwise normal. Impression And Plan: 1.Transient ischemic attack. 2.Hypertension. 3.Dyslipidemia. 4.Atypical chest pain. I am comfortable with the patient going home. He should be on statin. He s hould be on something for his blood pressure. He should be on aspirin. I will make an arrangement f or an outpatient MPI in the near future. CANDE/GOKUL Voice ID: [id number] Report ID: [id number]
== END 2021-02-01 15:20 | disposition home or self-care (01) | DRG 74 ==
LOC: ER 20:07 → ERHOLD 21:54 → OBSVTOIN 02-01 09:22
PROVIDERS: ADMIT Internal Medicine; ATTEND Internal Medicine
DX: G51.0 Bell's palsy (principal); G45.9 Transient cerebral ischemic attack, unspecified; I10 Essential (primary) hypertension; E78.5 Hyperlipidemia, unspecified; E86.0 Dehydration; R07.9 Chest pain, unspecified; E66.9 Obesity, unspecified; Z68.39 Body mass index [BMI] 39.0-39.9, adult; Z91.19 Patient's noncompliance with other medical treatment and regimen; Z79.82 Long term (current) use of aspirin; Z79.02 Long term (current) use of antithrombotics/antiplatelets; Z79.52 Long term (current) use of systemic steroids; Z79.899 Other long term (current) drug therapy; Z20.822 Contact with and (suspected) exposure to COVID-19
CPT/HCPCS: 36415; 70450; 70544; 70549; 70553; 71045; 80048; 80053; 80061; 80076; 82947; 83735; 83880; 84100; 84439; 84443; 84484; 85025; 85610; 85730; 93005; 93306; 94760; 96372; 96374; 99284; A9577; G0378; J1650; J7030; J7512; U0003